=== PATIENT | male | born 1985 | race Caucasian/White ===

== ENCOUNTER 2016-03-27 02:14 | Emergency (ER) ==
[2016-03-27 02:19] VITALS: BP 153/99
--- NOTE | 2016-03-27 03:05 | PROVIDER DOCUMENTATION ---
[id number] Abuse/Overdose - General Chief Complaint: Alcohol Withdrawal Stated Complaint: DETOX Time Seen by Provider: 03/27/16 02:46 Source: patient Allergies/Adverse Reactions: Allergies Allergy/AdvReac Type Severity Reaction Status Date / Time No Known Allergies Allergy Verified 03/27/16 02:43 Home Medications: No Home Medications 09/01/13 - History of Present Illness-Drug/Alcohol Nature of Presenting Problem: pt states that he is coming for detox. He states he drinks about a 5th of liquor a day and drank just before he drove himself here. He adds that he also takes percocet not prescribed and shoots up oxycontin. However while in triage he was making several very inappropriate sexual advances towards the nursing staff. I sternly warned pt that if he he did this just once again he would be asked to leave. I informed pt of the [facility] program at [facility]. However pt then decided to leave. As he was driving and intoxicated police were notified Review of Systems - Adult - REVIEW OF SYSTEMS - ADULT Constitutional: denies: chills, fever Eyes: denies: decreased vision, blurred vision, double vision Ears, Nose, Mouth & Throat: denies: ear pain, sinus problem, throat pain Cardiovascular: denies: chest pain Respiratory: denies: cough, shortness of breath Gastrointestinal: denies: abdominal pain, hematemesis, diarrhea, nausea, rectal bleeding, vomiting Genitourinary: denies: dysuria, frequency, flank pain Musculoskeletal: denies: back pain Integumentary: denies: rash Neurological: denies: headache/migraines, numbness, paresthesia Psychiatric: reports: alcohol/drug dependence All Other Systems: Reviewed and Negative Past History - Adult - PAST MEDICAL HISTORY-ADULT Review of Records: reports: Old Records Reviewed, Nursing Assessment Review, Medications Reviewed, Social history reviewed & non-contributory. Major Childhood Illnesses: reports: denies history Cardiovascular: reports: denies history Respiratory: reports: denies history Gastrointestinal: reports: denies history Obstetrical/Gynecological: reports: denies history Genitourinary: reports: denies history Musculoskeletal: reports: denies history Neurological: reports: denies history Endocrine/Immune: reports: denies history Other Conditions: reports: denies history - PRIOR HOSPITALIZATIONS Prior Hospitalizations: reports: for other non-related - IMMUNIZATION STATUS Childhood Immunizations: See Nurse Assessment Flu Vaccine: See Nurse Assessment - FAMILY HISTORY Family History: reviewed, not pertinent Physical Exam-General - PHYSICAL EXAM-ADULT Initial Vital Signs Reviewed: Yes - CONSTITUTIONAL General Appearance: appears well, alert, no apparent distress - EYES Eyes: pink conjunctivae. negative: scleral icterus - HEAD, EARS, NOSE, MOUTH & THROAT HENMT: normocephalic/atraumatic - RESPIRATORY Respiratory: chest non-tender, lungs clear, normal breath sounds, no pleuratic chest pain, no respiratory distress, no accessory muscle use - CARDIOVASCULAR Cardiovascular: no edema, no murmur, tachycardia - GASTROINTESTINAL (ABDOMEN) Abdominal Exam: normal bowel sounds, non tender, soft, no organomegaly, no pulsatile mass - SKIN Integumentary: normal color, normal turgor, warm/dry - NEUROLOGIC Neurologic: casting associate II-XII nml as tested, grossly normal, no motor/sensory deficits - PSYCHIATRIC Psych/Mental Status: normal mood/affect, normal thought content, normal thought process, oriented x 3 Progress - PLAN OF CARE/RESULTS Progress/Plan/Lab Results: Orders Category Date Time Status ALCOHOL BLOOD Stat Lab 03/27/16 02:48 Ordered Vital Signs Temp Pulse Resp BP Pulse Ox 03/27/16 02:16 97.7 F 120 H 18 153/99 100 No Known Allergies Allergy (Verified 03/27/16 02:43) No Home Medications 09/01/13 Departure - Departure Time of Disposition Order: 03:04 DIAGNOSIS: Alcohol intoxication Qualifiers: Complication of substance-induced condition: uncomplicated Qualified Code(s): F10.120 - Alcohol abuse with intoxication, uncomplicated Disposition: HOME 01 Certified Medical Emergency: Emergent Condition: Good Referrals: None,PCP [Primary Care Provider] -
== END 2016-03-27 03:05 | disposition left against medical advice (07) ==
LOC: ED 02:14
DX: F10.120 Alcohol abuse with intoxication, uncomplicated (principal); R00.0 Tachycardia, unspecified
CPT/HCPCS: 99281

== ENCOUNTER 2016-03-27 19:42 | Emergency (ER) ==
[2016-03-27 21:23] LABS: UR AMPHETAMINES QUAL NONE DETECTED (NONE DETECT); UR BARBITUATES QUAL NONE DETECTED (NONE DETECT); UR BENZODIAZEPIN QUAL NONE DETECTED (NONE DETECT); UR CANNABINOIDS QUAL PRESUMPTIVE POSITIVE (NONE DETECT); UR COCAINE QUAL NONE DETECTED (NONE DETECT); UR MDMA QUAL NONE DETECTED (NONE DETECT); UR METHADONE QUAL NONE DETECTED (NONE DETECT); UR METHAMPHETAMINE QUAL NONE DETECTED (NONE DETECT); UR OPIATES QUAL NONE DETECTED (NONE DETECT); UR OXYCODONE QUAL NONE DETECTED (NONE DETECT); UR PCP QUAL NONE DETECTED (NONE DETECT); UR TCA QUAL NONE DETECTED (NONE DETECT)
[2016-03-27 21:24] LABS: MANUAL DIFF NEEDED? NO
[2016-03-27 21:34] LABS: BASO% 0.8 % (0.0-0.8); EOS# 0.07 X1000 (0.0-0.7); EOS% 1.1 % (0.0-10.0); HEMATOCRIT 46.8 % (42.0-52.0); HEMOGLOBIN 16.2 g/dL (14.0-18.0); LYMPH# 2.19 X1000 (1.2-3.4); LYMPH% 34.2 % (20.5-51.1); MCH 32.5 PG (27-31); MCHC 34.6 g/dL (33-37); MCV 93.8 FL (81-99); MONO# 0.51 X1000 (0.11-0.59); MPV 9.4 FL (7.4-10.4); NEUT% 55.9 % (42.2-75.2); PLT 332 X1000 (130-400); RBC 4.99 XMIL (4.7-6.1)
[2016-03-27] MEDS ORDERED: ATIVAN IM ONE (21:58)
[2016-03-27 22:00] LABS: ACETAMINOPHEN < 1.2 ug/mL (10-30)
[2016-03-27 22:01] LABS: AGAP 18; ALBUMIN 4.7 g/dL (3.5-5.0); ALKALINE PHOSPHATASE 77 U/L (32-122); BUN 9 mg/dL (8-22); CALCIUM 9.3 mg/dL (8.8-10.2); CHLORIDE 99 mmol/L (98-107); COSMO 280; GOT 93 U/L (10-34); GPT 61 U/L (10-44); POTASSIUM 3.7 mmol/L (3.5-5.1); SODIUM 139 mmol/L (136-145); TCO2 23 mmol/L (25-35); TOTAL PROTEIN 7.4 g/dL (6.3-8.3)
--- NOTE | 2016-03-27 22:03 | PROVIDER DOCUMENTATION ---
HPI-Psychological Disorder - General Source: patient <ErikaJulienne way - Last Filed: 03/28/16 02:26> <Gena Martinez - Last Filed: 03/28/16 13:55> <AyalaJose Brady - Last Filed: 03/29/16 12:04> <Mai Trejo - Last Filed: 03/29/16 21:03> - General Chief Complaint: Psych Stated Complaint: PHYSC Time Seen by Provider: 03/27/16 20:10 Allergies/Adverse Reactions: Patient Allergies Allergy/AdvReac Type Severity Reaction Status Date / Time No Known Allergies Allergy Verified 03/27/16 02:43 Home Medications: No Home Medications 09/01/13 - History of Present Illness-Psych Nature of Presenting Problem: 31 y/o WM presents to the ED for SI, drug use, alcohol use x 5 years. Pt is escorted by his aunt, who states last drink of etOH was seconds prior to walking into the ED. States gun at home, nooses, and plenty of pills for his plan. States IVDU- oxycodone. Reports severe drinker, and has had a seizure in the past from withdrawals. States aunt he used to drink with 6 years ago committed suicide and he feels guilty for it. States no illness, N/V/D/C, fever /chills. States he wants to leave to get more alcohol. Aunt states SI worse when sober. (Julienne James) Review of Systems - Adult - REVIEW OF SYSTEMS - ADULT Constitutional: reports: no symptoms reported. denies: chills, fever Eyes: reports: no symptoms reported. denies: blurred vision, double vision Ears, Nose, Mouth & Throat: reports: no symptoms reported. denies: ear pain, nose pain Cardiovascular: reports: no symptoms reported. denies: chest pain, palpitations Respiratory: reports: no symptoms reported. denies: dyspnea on exertion, shortness of breath Gastrointestinal: reports: no symptoms reported. denies: abdominal pain, nausea , vomiting Genitourinary: reports: no symptoms reported. denies: dysuria, frequency Musculoskeletal: reports: no symptoms reported. denies: joint pain, joint swelling Integumentary: reports: no symptoms reported. denies: nail changes, rash Neurological: reports: no symptoms reported. denies: numbness, paresthesia Psychiatric: reports: see HPI, alcohol/drug dependence, suicidal thoughts Endocrine: reports: no symptoms reported. denies: cold intolerance, heat intolerance Hematologic/Lymphatic: reports: no symptoms reported. denies: easy bruising, prolonged bleeding Allergic/Immunologic: reports: no symptoms reported All Other Systems: Reviewed and Negative <Julienne JamesLainey - Last Filed: 03/28/16 02:26> Past History - Adult - PAST MEDICAL HISTORY-ADULT Review of Records: reports: Nursing Assessment Review, Medications Reviewed Major Childhood Illnesses: reports: denies history Cardiovascular: reports: denies history Respiratory: reports: denies history Gastrointestinal: reports: denies history Obstetrical/Gynecological: reports: denies history Genitourinary: reports: denies history Musculoskeletal: reports: denies history Neurological: reports: denies history Endocrine/Immune: reports: denies history Other Conditions: reports: denies history - PRIOR HOSPITALIZATIONS Prior Hospitalizations: reports: for other non-related - IMMUNIZATION STATUS Childhood Immunizations: See Nurse Assessment Flu Vaccine: See Nurse Assessment - FAMILY HISTORY Family History: reviewed, not pertinent - SOCIAL HISTORY Smoking: cigarettes, less than 1 pack/day Provider spent 3-5 mins advising pt. on dangers of tobacco.: Discussed manners to quit use, and f/u contacts for add'l counseling. Substance Use: alcohol Alcohol Use Frequency: every day <Julienne JamesLainey - Last Filed: 03/28/16 02:26> Physical Exam-Psych Focus - Physical Exam-Psych Initial Vital Signs Reviewed: Yes Appearance: denies illness, alert, anxious, disheveled Neurological: oriented x 3, agitated, anxious Behavior/Eye Contact/Speech: normal speech Thoughts/Hallucinations: normal thought pattern, no apparent hallucination. negative: auditory hallucinations HENMT: normocephalic/atraumatic, moist mucous membranes Neck: supple, normal inspection Respiratory: lungs clear, normal breath sounds. negative: crackles, rales, rhonchi, stridor, wheezing Cardiovascular: tachycardia. negative: regular rate, rhythm, bradycardia Abdominal Exam: normal bowel sounds, non tender, soft. negative: distended, guarding, rigid, rebound Back Exam: normal inspection Extremity: normal gait Integumentary: normal color, normal turgor, warm/dry <Julienne James - Last Filed: 03/28/16 02:26> Progress - CHANGE OF SHIFT REPORT (ED Provider) Report Given and Care Transferred to:: Dr. Hatfield Time of Transfer: 02:27 Items Pending: Other (etOH level to come down; call [facility] for consult) Tentative Impression of Patient: SI with etOH intoxication <Julienne James - Last Filed: 03/28/16 02:26> - REASSESSMENT Reassessment #1 Time Reassessed: 13:55 (Pt is in no distress at this time reports he doesn't feel comfortable getting discharge and he wants placement. spoke with [facility] supervisor intelligence analyst which reports they will look for placement for pt.) <Gena Martinez - Last Filed: 03/28/16 13:55> - REASSESSMENT Reassessment #2 Time Reassessed: 12:04 Status: unchanged (Pt is stable, walking around at ER. Will provide Lunch. Pt requested a shot for his nerve. Per Jacinta Grossman, seed corn manager production is working on his placement.) <Jose Ayala - Last Filed: 03/29/16 12:04> <Mai Trejo - Last Filed: 03/29/16 21:03> - PLAN OF CARE/RESULTS Progress/Plan/Lab Results: 1818: Pt requesting medications to help calm his nerves. Dr. Ortega made aware and medications ordered. 1851: Geodon ordered. No beds in [place]. [facility] have a bed tomorrow. Family does not feel comfortable taking pt home. 1950: Bed obtained at [facility] in [place]. Orders Category Date Time Status ACETAMINOPHEN [TDM] Stat Lab 03/27/16 21:00 Completed ALCOHOL BLOOD Stat Lab 03/27/16 21:00 Completed CBC WITH DIFF [HEME] Stat Lab 03/27/16 21:00 Completed CMP [COMPREHENSIVE METABOLIC PANEL] [CHEM] Stat Lab 03/27/16 21:00 Completed ETOH [ALCOHOL BLOOD] Stat Lab 03/28/16 06:05 Completed ETOH [ALCOHOL BLOOD] Stat Lab 03/28/16 10:24 Completed MAGNESIUM [CHEM] Stat Lab 03/27/16 21:00 Completed SALICYLATES [TDM] Stat Lab 03/27/16 21:00 Completed URINE DRUG SCREEN PL Stat Lab 03/27/16 20:50 Completed VITAMIN B12 Stat Lab 03/27/16 21:00 Completed Chlordiazepoxide [Librium] Med 03/28/16 05:41 Discontinued 25 mg PO NOW ONE Diphenhydramine [Benadryl] Med 03/28/16 14:09 Discontinued 50 mg PO NOW ONE Diphenhydramine [Benadryl] Med 03/29/16 07:38 Discontinued 50 mg PO NOW ONE Lorazepam [Ativan] Med 03/28/16 14:10 Discontinued 1 mg PO NOW ONE Lorazepam [Ativan] Med 03/29/16 07:38 Discontinued 1 mg PO NOW ONE Lorazepam [Ativan] Med 03/29/16 18:19 Discontinued 1 mg PO NOW ONE Lorazepam [Ativan] Med 03/29/16 01:25 Discontinued 2 mg .ROUTE .STK-MED ONE Lorazepam [Ativan] Med 03/27/16 21:58 Discontinued 2 mg IM NOW ONE Lorazepam [Ativan] Med 03/28/16 22:36 Discontinued 2 mg IM NOW ONE Lorazepam [Ativan] Med 03/28/16 11:02 Discontinued 2 mg PO NOW ONE Ondansetron Odt [Zofran Odt] Med 03/29/16 07:41 Discontinued 4 mg .ROUTE .STK-MED ONE Ondansetron Odt [Zofran Odt] Med 03/29/16 07:42 Discontinued 4 mg PO NOW ONE Water, Sterile Inj [Sterile Water Inj] Med 03/27/16 22:16 Discontinued 1.2 ml INJ NOW ONE Water, Sterile Inj [Sterile Water Inj] Med 03/28/16 06:42 Discontinued 1.2 ml INJ NOW ONE Water, Sterile Inj [Sterile Water Inj] Med 03/28/16 17:49 Discontinued 1.2 ml INJ NOW ONE Water, Sterile Inj [Sterile Water Inj] Med 03/28/16 22:36 Discontinued 1.2 ml INJ NOW ONE Water, Sterile Inj [Sterile Water Inj] Med 03/29/16 12:04 Discontinued 1.2 ml INJ NOW ONE Water, Sterile Inj [Sterile Water Inj] Med 03/29/16 18:50 Discontinued 1.2 ml INJ NOW ONE Water, Sterile Inj [Sterile Water Inj] Med 03/28/16 22:52 Discontinued 10 ml .ROUTE .STK-MED ONE Ziprasidone [Geodon] Med 03/28/16 06:42 Discontinued 10 mg IM NOW ONE Ziprasidone [Geodon] Med 03/28/16 17:49 Discontinued 10 mg IM NOW ONE Ziprasidone [Geodon] Med 03/28/16 22:36 Discontinued 10 mg IM NOW ONE Ziprasidone [Geodon] Med 03/29/16 12:04 Discontinued 10 mg IM NOW ONE Ziprasidone [Geodon] Med 03/29/16 18:50 Discontinued 10 mg IM NOW ONE Ziprasidone [Geodon] Med 03/28/16 22:52 Discontinued 20 mg .ROUTE .STK-MED ONE Ziprasidone [Geodon] Med 03/27/16 22:16 Discontinued 20 mg IM NOW ONE EKG [EKG] Stat Ther 03/28/16 14:51 Draft Laboratory Tests 03/27/16 03/27/16 03/27/16 20:50 21:00 21:00 WBC 6.41 RBC 4.99 Hgb 16.2 Hct 46.8 MCV 93.8 MCH 32.5 H MCHC 34.6 RDW Std Deviation 12.6 Plt Count 332 MPV 9.4 Immature Gran % (Auto) 0.0 Neut % (Auto) 55.9 Lymph % (Auto) 34.2 Caroline % (Auto) 8.0 Eos % (Auto) 1.1 Baso % (Auto) 0.8 Immature Gran # (Auto) 0.00 Neut # (Auto) 3.59 Lymph # (Auto) 2.19 Caroline # (Auto) 0.51 Eos # (Auto) 0.07 Baso # (Auto) 0.05 Sodium 139 Potassium 3.7 Chloride 99 Carbon Dioxide 23 L Anion Gap 18 BUN 9 Creatinine 0.8 Estimated GFR/1.73 m2 > 60 BUN/Creatinine Ratio 11 Glucose 166 H POC Glucose Calculated Osmolality 280 Calcium 9.3 Magnesium Total Bilirubin 0.40 AST 93 H ALT 61 H Alkaline Phosphatase 77 Total Protein 7.4 Albumin 4.7 Globulin 3.0 Albumin/Globulin Ratio 2.0 Vitamin B12 Salicylates Urine Opiates Screen NONE DETECTED Ur Oxycodone Screen NONE DETECTED Urine Methadone Screen NONE DETECTED Acetaminophen Ur Barbituates Screen NONE DETECTED Ur Tricyclics Screen NONE DETECTED Ur Phencyclidine Scrn NONE DETECTED Ur Amphetamines Screen NONE DETECTED U Methamphetamines Scrn NONE DETECTED Urine MDMA Screen NONE DETECTED U Benzodiazepines Scrn NONE DETECTED Urine Cocaine Screen NONE DETECTED U Cannabinoids Screen PRESUMPTIVE POSITIVE A Plasma/Serum Ethyl Alc 03/27/16 03/27/16 03/27/16 21:00 21:00 21:00 WBC RBC Hgb Hct MCV MCH MCHC RDW Std Deviation Plt Count MPV Immature Gran % (Auto) Neut % (Auto) Lymph % (Auto) Caroline % (Auto) Eos % (Auto) Baso % (Auto) Immature Gran # (Auto) Neut # (Auto) Lymph # (Auto) Caroline # (Auto) Eos # (Auto) Baso # (Auto) Sodium Potassium Chloride Carbon Dioxide Anion Gap BUN Creatinine Estimated GFR/1.73 m2 BUN/Creatinine Ratio Glucose POC Glucose Calculated Osmolality Calcium Magnesium Total Bilirubin AST ALT Alkaline Phosphatase Total Protein Albumin Globulin Albumin/Globulin Ratio Vitamin B12 755 Salicylates < 3.00 L Urine Opiates Screen Ur Oxycodone Screen Urine Methadone Screen Acetaminophen < 1.2 L Ur Barbituates Screen Ur Tricyclics Screen Ur Phencyclidine Scrn Ur Amphetamines Screen U Methamphetamines Scrn Urine MDMA Screen U Benzodiazepines Scrn Urine Cocaine Screen U Cannabinoids Screen Plasma/Serum Ethyl Alc 433 H* 03/27/16 03/28/16 03/28/16 21:00 06:05 10:24 WBC RBC Hgb Hct MCV MCH MCHC RDW Std Deviation Plt Count MPV Immature Gran % (Auto) Neut % (Auto) Lymph % (Auto) Caroline % (Auto) Eos % (Auto) Baso % (Auto) Immature Gran # (Auto) Neut # (Auto) Lymph # (Auto) Caroline # (Auto) Eos # (Auto) Baso # (Auto) Sodium Potassium Chloride Carbon Dioxide Anion Gap BUN Creatinine Estimated GFR/1.73 m2 BUN/Creatinine Ratio Glucose POC Glucose Calculated Osmolality Calcium Magnesium 2.2 Total Bilirubin AST ALT Alkaline Phosphatase Total Protein Albumin Globulin Albumin/Globulin Ratio Vitamin B12 Salicylates Urine Opiates Screen Ur Oxycodone Screen Urine Methadone Screen Acetaminophen Ur Barbituates Screen Ur Tricyclics Screen Ur Phencyclidine Scrn Ur Amphetamines Screen U Methamphetamines Scrn Urine MDMA Screen U Benzodiazepines Scrn Urine Cocaine Screen U Cannabinoids Screen Plasma/Serum Ethyl Alc 187 H 78 H 03/28/16 13:41 WBC RBC Hgb Hct MCV MCH MCHC RDW Std Deviation Plt Count MPV Immature Gran % (Auto) Neut % (Auto) Lymph % (Auto) Caroline % (Auto) Eos % (Auto) Baso % (Auto) Immature Gran # (Auto) Neut # (Auto) Lymph # (Auto) Caroline # (Auto) Eos # (Auto) Baso # (Auto) Sodium Potassium Chloride Carbon Dioxide Anion Gap BUN Creatinine Estimated GFR/1.73 m2 BUN/Creatinine Ratio Glucose POC Glucose 104 Calculated Osmolality Calcium Magnesium Total Bilirubin AST ALT Alkaline Phosphatase Total Protein Albumin Globulin Albumin/Globulin Ratio Vitamin B12 Salicylates Urine Opiates Screen Ur Oxycodone Screen Urine Methadone Screen Acetaminophen Ur Barbituates Screen Ur Tricyclics Screen Ur Phencyclidine Scrn Ur Amphetamines Screen U Methamphetamines Scrn Urine MDMA Screen U Benzodiazepines Scrn Urine Cocaine Screen U Cannabinoids Screen Plasma/Serum Ethyl Alc Vital Signs - 24 hr 03/28/16 03/29/16 03/29/16 23:04 14:39 20:27 Temperature 97.3 F L 98.4 F 97.6 F Pulse Rate 112 H 98 H 105 H Respiratory 18 16 18 Rate Blood Pressure 158/100 135/91 148/74 O2 Sat by Pulse 98 98 97 Oximetry (Mai Trejo) Departure - Departure Certified Medical Emergency: Emergent <Julienne James - Last Filed: 03/28/16 02:26> <Gena Martinez - Last Filed: 03/28/16 13:55> <Jose Ayala - Last Filed: 03/29/16 12:04> - Departure Time of Disposition Order: 21:00 Certified Medical Emergency: Emergent <Mai Trejo - Last Filed: 03/29/16 21:03> - Departure DIAGNOSIS: Suicidal ideations Alcohol intoxication Qualifiers: Complication of substance-induced condition: uncomplicated Qualified Code(s): F10.120 - Alcohol abuse with intoxication, uncomplicated Depression Qualifiers: Depression Type: unspecified Qualified Code(s): F32.9 - Major depressive disorder, single episode, unspecified Disposition: [facility] Condition: Stable Referrals: None,PCP [Primary Care Provider] - Attestation - Physician/ Mid-level Attestation Patient care was provided by Mid-level provider (ABALONE PROCESSOR/PA):: Yes Mid-level provider:: Julienne James Mid-level documentation review:: The Mid-level provider documentation, treatment plan and medical decision making was reviewed by the physician who agrees with all treatment and medical decision making by the MLP. <Julienne James - Last Filed: 03/28/16 02:26> Physician Attestation
[2016-03-27] MEDS ORDERED: GEODON IM ONE (22:16)
[2016-03-27] MEDS ORDERED: STERILE WATER INJ. INJ ONE (22:16)
[2016-03-28] MEDS ORDERED: LIBRIUM PO ONE (05:41)
[2016-03-28] MEDS ORDERED: STERILE WATER INJ. INJ ONE ×3 (06:42→22:36)
[2016-03-28] MEDS ORDERED: GEODON IM ONE ×3 (06:42→22:36)
[2016-03-28] MEDS ORDERED: ATIVAN PO ONE ×2 (11:02→14:10)
[2016-03-28] MEDS ORDERED: BENADRYL PO ONE (14:09)
--- NOTE | 2016-03-28 15:13 | EKG Report ---
Test Performed on : 03/28/2016 3:05:46 PM Test Reason : ADMIT Blood Pressure : / mmHG Vent. Rate : 086 BPM Atrial Rate : 086 BPM P-R Int : 148 ms QRS Dur : 088 ms QT Int : 358 ms P-R-T Axes : 074 086 053 degrees QTc Int : 428 ms Normal sinus rhythm. with sinus arrhythmia. Minimal voltage criteria for LVH, may be normal variant Borderline ECG No previous ECGs available Unconfirmed Result
[2016-03-28] MEDS ORDERED: ATIVAN IM ONE (22:36)
[2016-03-28] MEDS ORDERED: GEODON ONE (22:52)
[2016-03-28] MEDS ORDERED: STERILE WATER INJ. ONE (22:52)
[2016-03-29] MEDS ORDERED: ATIVAN ONE (01:25)
[2016-03-29] MEDS ORDERED: BENADRYL PO ONE (07:38)
[2016-03-29] MEDS ORDERED: ATIVAN PO ONE ×2 (07:38→18:19)
[2016-03-29] MEDS ORDERED: ZOFRAN ODT ONE (07:41)
[2016-03-29] MEDS ORDERED: ZOFRAN ODT PO ONE (07:42)
[2016-03-29] MEDS ORDERED: STERILE WATER INJ. INJ ONE ×2 (12:04→18:50)
[2016-03-29] MEDS ORDERED: GEODON IM ONE ×2 (12:04→18:50)
[2016-03-29 20:28] VITALS: BP 148/74
[2016-03-29] MEDS ORDERED: ATIVAN IM ONE (22:14)
== END 2016-03-29 22:20 ==
LOC: P.ED 19:42
DX: F32.9 Major depressive disorder, single episode, unspecified (principal); R45.851 Suicidal ideations; F10.120 Alcohol abuse with intoxication, uncomplicated; R00.0 Tachycardia, unspecified; F17.210 Nicotine dependence, cigarettes, uncomplicated; Z71.6 Tobacco abuse counseling
CPT/HCPCS: 36415; 80053; 82607; 83735; 85025; 93005; 96372; G0480; J2060; J3486